=== PATIENT | male | born 1985 | race African-American/Black ===

== ENCOUNTER 2022-04-09 13:26 | Emergency (ER) | payer OTHER ==
[2022-04-09 13:31] VITALS: BP 120/70; PULSE 80; RESP 18; TEMP 98.2; BMI 25.0
[2022-04-09] MEDS ORDERED: LIDOCAINE HCL 2% (20ML MULTI-DOSE VIAL) ONE ×2 (14:11→14:25)
[2022-04-09] MEDS ORDERED: BACITRACIN 15 GM TUBE TOPICAL OINTMENT TP ONE (14:22)
[2022-04-09] MEDS ORDERED: BACITRACIN 15 GM TUBE TOPICAL OINTMENT ONE (14:23)
[2022-04-09] MEDS ORDERED: LIDOCAINE HCL 2% (50ML VIAL) SQ ONE (14:23)
== END 2022-04-09 14:41 | disposition home or self-care (01) ==
LOC: JERFT 13:26
DX: S99.921A Unspecified injury of right foot, initial encounter (principal); W22.8XXA Striking against or struck by other objects, initial encounter
CPT/HCPCS: 99283-25